=== PATIENT | male | born 1985 | race Caucasian/White ===

== ENCOUNTER → 2018-09-11 | Outpatient (CLI) | payer OTHER ==
--- NOTE | 2018-09-19 18:04 | PFR/MVV ---
[facility] [place] [address] PULMONARY FUNCTION MVV/REPORT Name: CONOR DUMONT Room #: [facility]#: [id number] ������������������ Admission: 09/11/18 ������������������ Attend Phys: Michoacano Haskins MD Discharge: ������������������ Date of : 89 Report #: [id number] THIS REPORT FOR: //name// >> SPIROMETRY: (BTPS) Height: 68 in cm Weight: 155 lbs kg Exam Date: 09/11/18 PRE-RX POST-RX PRED BEST %PRED BEST %PRED %CHG FVC LITERS . 5.05 . 4.08 . 81 . 5.22 . 103 . 28 FEV1 LITERS . 4.00 . 3.29 . 82 . 4.67 . 117 . 42 FEV1/FVC % . 78 . 81 . 103 . 89 . 114 . 11 NWP92-43% L/Sec . 4.31 . 3.40 . 79 . 5.88 . 136 . 73 PEF L/SEC . 9.15 . 5.10 . 56 . 7.21 . 79 . 41 FEF50/FIF50 UNITLESS . . 1.42 . . 1.44 . . 1 MVV L/Min . 170 . 54 . 32 f 1/Min . . 150 . >> LUNG VOLUMES: (BTPS) PRE-RX POST-RX PRED AVG %PRED AVG %PRED %CHG VC Liters . 5.05 . 4.56 . 90 . . . TLC Liters . 6.62 . 7.08 . 107 . . . RV Liters . 1.74 . 2.52 . 145 . . . RV/TLC % . 27 . 36 . 130 . . . FRC PL Liters . 3.61 . 4.08 . 113 . . . FRC N2 Liters . . . . . . ERV Liters . 1.67 . 1.56 . 93 . . . IC Liters . 3.34 . 2.63 . 79 . . . >> DIFFUSION: DLCO ml/Min/mmHg . 27.9 . 37.7 . 135 . . . DL Pérez ml/Min/mmHg . 27.9 . 37.7 . 135 . . . DLCO/VA ml/Min/mmHg . 4.50 . 6.38 . 142 . . . VA Liters . 6.74 . 5.91 . 88 . . . COMMENTS: COMMENTS: >> RESISTANCE: [facility] [address] [place] [address] PULMONARY FUNCTION MVV/REPORT Name: CONOR DUMONT Room #: [facility]#: [id number] ������������������ Admission: 09/11/18 ������������������ Attend Phys: Michoacano Haskins MD Discharge: ������������������ Date of : 89 Report #: [id number] PRE-RX PRED AVG %PRED Raw Total cmH20/L/Sec . . 4.48 . Raw Insp cmH20/L/Sec . . 6.42 . Raw Exp cmH20/L/Sec . . 3.73 . Raw cmH20/L/Sec . 1.24 . 1.37 . 110 Gaw L/Sec/cmH20 . 0.865 . 0.729 . 84 sRaw cmH20 Sec . 4.48 . 4.84 . 108 sGaw l/cmH20 Sec . 0.223 . 0.207 . 92 Vtq Liters . . 3.53 . # = OUTSIDE 95% CONFIDENCE INTERVAL CALIBRATION: PRED: 3.00 ACTUAL: EXP 3.01 INSP 3.02 [facility] N-[facility]04-4 >> INTERPRETATION/IMPRESSION: CC: Michoacano Haskins ADDENDUM Following bronchodilators, there were significant bronchodilator improvement. This may suggest reversible airways disease. Clinical correlation is recommended. ��������������������������������������������� <ELECTRONICALLY SIGNED> ���������������������������������������� By: Willard Thibodeaux MD ��������������������������������������������� 09/19/18 1804 Willard Thibodeaux MD /nt
--- NOTE | 2018-09-19 18:04 | PFR/MVV ---
[facility] [place] [address] PULMONARY FUNCTION MVV/REPORT Name: CONOR DUMONT Room #: [facility]#: [id number] ������������������ Admission: 09/11/18 ������������������ Attend Phys: Michoacano Haskins MD Discharge: ������������������ Date of : 89 Report #: [id number] THIS REPORT FOR: //name// >> SPIROMETRY: (BTPS) Height: 68 in cm Weight: 155 lbs kg Exam Date: 09/11/18 PRE-RX POST-RX PRED BEST %PRED BEST %PRED %CHG FVC LITERS . 5.05 . 4.08 . 81 . 5.22 . 103 . 28 FEV1 LITERS . 4.00 . 3.29 . 82 . 4.67 . 117 . 42 FEV1/FVC % . 78 . 81 . 103 . 89 . 114 . 11 EZL20-69% L/Sec . 4.31 . 3.40 . 79 . 5.88 . 136 . 73 PEF L/SEC . 9.15 . 5.10 . 56 . 7.21 . 79 . 41 FEF50/FIF50 UNITLESS . . 1.42 . . 1.44 . . 1 MVV L/Min . 170 . 54 . 32 f 1/Min . . 150 . >> LUNG VOLUMES: (BTPS) PRE-RX POST-RX PRED AVG %PRED AVG %PRED %CHG VC Liters . 5.05 . 4.56 . 90 . . . TLC Liters . 6.62 . 7.08 . 107 . . . RV Liters . 1.74 . 2.52 . 145 . . . RV/TLC % . 27 . 36 . 130 . . . FRC PL Liters . 3.61 . 4.08 . 113 . . . FRC N2 Liters . . . . . . ERV Liters . 1.67 . 1.56 . 93 . . . IC Liters . 3.34 . 2.63 . 79 . . . >> DIFFUSION: DLCO ml/Min/mmHg . 27.9 . 37.7 . 135 . . . DL Pérez ml/Min/mmHg . 27.9 . 37.7 . 135 . . . DLCO/VA ml/Min/mmHg . 4.50 . 6.38 . 142 . . . VA Liters . 6.74 . 5.91 . 88 . . . COMMENTS: COMMENTS: >> RESISTANCE: [facility] [address] [place] [address] PULMONARY FUNCTION MVV/REPORT Name: CONOR DUMONT Room #: [facility]#: [id number] ������������������ Admission: 09/11/18 ������������������ Attend Phys: Michoacano Haskins MD Discharge: ������������������ Date of : 89 Report #: [id number] PRE-RX PRED AVG %PRED Raw Total cmH20/L/Sec . . 4.48 . Raw Insp cmH20/L/Sec . . 6.42 . Raw Exp cmH20/L/Sec . . 3.73 . Raw cmH20/L/Sec . 1.24 . 1.37 . 110 Gaw L/Sec/cmH20 . 0.865 . 0.729 . 84 sRaw cmH20 Sec . 4.48 . .484 . 108 sGaw l/cmH20 Sec . 0.223 . 0.207 . 92 Vtq Liters . . 3.53 . # = OUTSIDE 95% CONFIDENCE INTERVAL CALIBRATION: PRED: 3.00 ACTUAL: EXP 3.[address] [facility]OL10-06 [facility] N-1804-4 >> INTERPRETATION/IMPRESSION: CC: Michoacano Haskins PULMONARY FUNCTION TEST FINDINGS: Spirometric examination shows normal flows. There is significant bronchodilator response. Lung volumes are normal. Diffusion capacity is increased, but probably normal, corrected for alveolar volume. Flow volume loop is normal. IMPRESSION: Normal pulmonary function tests. ��������������������������������������������� <ELECTRONICALLY SIGNED> ���������������������������������������� By: Willard Thibodeaux MD ��������������������������������������������� 09/19/18 1804 Willard Thibodeaux MD /nt
== END ==
LOC: PUL 11:43
DX: J45.909 Unspecified asthma, uncomplicated (principal)